=== PATIENT | male | born 1960 | race African-American/Black ===

== ENCOUNTER 2025-09-17 21:11 | Inpatient (IN) | payer MEDICARE, MEDICAID ==
[~2025-09-17] VITALS: Ht 188 cm; Wt 105.2 kg
[2025-09-17 21:13] VITALS: O2SAT 100
[2025-09-17 22:12] LABS: BASOPHILS % 0.2 % (0.0-2.0); EOSINOPHILS % 1.6 % (0.0-5.0); HEMATOCRIT. 36.7 % (42.0-52.0); HEMOGLOBIN. 12.8 g/dL (14.0-18.0); LYMPHOCYTES % 14.2 % (20.0-50.0); MEAN PLATELET VOLUME 6.9 fl (7.4-10.4); MONOCYTES % 9.7 % (2.0-8.0); NEUTROPHILS % 74.3 % (40.0-76.0); PLATELET 120 x1000/uL (130-400); RED BLOOD CELL COUNT 3.80 mill/uL (4.7-6.1); RED CELL DISTRIBUTION WIDTH 12.3 % (11.6-14.6)
[2025-09-17 22:25] LABS: INR 1.0
[2025-09-17 22:32] LABS: CREATININE 0.9 mg/dL (0.6-1.3); UREA NITROGEN BLOOD 9 mg/dL (9-23)
[2025-09-17 22:34] LABS: ASPARTATE AMINOTRANSFERASE 15 IU/L (<34); BILIRUBIN DIRECT 0.4 mg/dL (<=3.0); BILIRUBIN TOTAL 1.3 mg/dL (0.1-1.0); PROTEIN TOTAL 6.9 g/dL (6.0-8.3)
[2025-09-17 22:45] LABS: TROPONIN I HIGH SENSITIVITY 351 ng/L (3.0-53)
[2025-09-18] MEDS ORDERED: DOCUSATE SODIUM 100MG CAPSULE PO PRN (00:15)
[2025-09-18] MEDS: ASPIRIN 81MG TABLET NG SCH (00:15)
[2025-09-18] MEDS ORDERED: ACETAMINOPHEN 325MG TABLET PO PRN ×2 (00:15)
[2025-09-18] MEDS ORDERED: GUAIFENESIN 200MG/10ML SUGAR FREE UDC PO PRN (00:15)
[2025-09-18] MEDS ORDERED: MAGNESIUM/ALUMINUM HYDROXIDE/SIMETHICONE 30ML UDC PO PRN (00:15)
[2025-09-18] MEDS ORDERED: IPRATROPIUM/ALBUTEROL 0.5-3(2.5)MG/3ML NEB HHN PRN (00:15)
[2025-09-18] MEDS ORDERED: ONDANSETRON HCL 4MG/2ML INJ IV PRN (00:15)
[2025-09-18] MEDS: LABETALOL 5MG/ML 4ML INJ IV ONE (00:23)
[2025-09-18] MEDS: LABETALOL 5MG/ML 4ML INJ IV NR (00:23)
[2025-09-18] MEDS: HYDRALAZINE 20MG/ML VIAL IV PRN (01:09)
[2025-09-18] MEDS: IOHEXOL-350 100 ML BOTTLE ONE (01:14)
[2025-09-18] MEDS: ASPIRIN 300MG SUPP PR ONE (01:23)
[2025-09-18 06:55] LABS: CREATINE KINASE MB FRACTION 1.7 ng/mL (0.5-3.6)
[2025-09-18 06:56] LABS: CLARITY URINE CLEAR (CLEAR); COLOR URINE YELLOW (YELLOW); SPECIFIC GRAVITY URINE 1.042 (1.005-1.030)
[2025-09-18 06:57] LABS: GLUCOSE URINE TRACE (NEGATIVE); KETONES URINE NEGATIVE (NEGATIVE); LEUKOCYTE ESTERASE URINE NEGATIVE (NEGATIVE); NITRITE URINE NEGATIVE (NEGATIVE); OCCULT BLOOD URINE NEGATIVE (NEGATIVE); PH URINE 6.5 (4.5-8.0); PROTEIN URINE 1+ (NEGATIVE); UROBILINOGEN URINE 1.0 E.U./dL (0.2-1.0); WBC URINE 0-2 /hpf (0-2)
[2025-09-18 06:58] LABS: BACTERIA URINE TRACE; RBC URINE 0-2 /hpf (0-2); SQUAMOUS EPITHELIAL CELL URINE FEW /lpf (RARE/1+)
[2025-09-18 07:13] LABS: VITAMIN B12 SERUM 332 pg/mL (211-911)
[2025-09-18 07:14] LABS: FOLIC ACID (FOLATE) SERUM 18.70 ng/mL (>5.38)
[2025-09-18 08:00] VITALS: BP 178/86; PULSE 86; RESP 18; TEMP 36.4; O2SAT 99
[2025-09-18 08:09] LABS: TROPONIN I HIGH SENSITIVITY 277 ng/L (3.0-53)
[2025-09-18 08:20] LABS: TROPONIN I HIGH SENSITIVITY 299 ng/L (3.0-53)
[2025-09-18] MEDS: CARVEDILOL 6.25 MG TABLET PO SCH (09:00)
[2025-09-18] MEDS: DEXT 5%/LACTATED RINGERS 500 ML IV ONE (10:46)
[2025-09-18] MEDS: PANTOPRAZOLE SODIUM 40 MG/VIAL IV SCH ×2 (10:58→21:54)
[2025-09-18 11:45] VITALS: BP 178/86; PULSE 84; RESP 18; TEMP 37.6412
[2025-09-18 12:00] VITALS: BP 178/89; PULSE 80; RESP 18; TEMP 36.4; O2SAT 99
[2025-09-18 12:07] LABS: BG BASE EXCESS 2.0 mmol/L (-2.0-3.0); BG CARBOXYHEMOGLOBIN 1.4 % (0.5-1.5); BG DEOXYHEMOGLOBIN 4.0 % (0.0-5.0); BG FRACTION INSPIRED OXYGEN 21; BG HCO3 ACT 25.5 mmol/L (21.0-28.0); BG METHEMOGLOBIN 0.0 % (0.5-1.5); BG OXYGEN SATURATION 95.9 % (94.0-98.0); BG OXYHEMOGLOBIN 94.6 % (94.0-98.0); BG PCO2 36.2 mmHg (35.0-48.0); BG PH 7.465 (7.350-7.450); BG PO2 78.4 mmHg (83.0-108.0); BG SAMPLE SITE RIGHT BRACHIAL; BG TOTAL HEMOGLOBIN 13.9 g/dL (13.5-17.5); BG VENT MODE ROOM AIR
[2025-09-18] MEDS: MAGNESIUM 4 G PREMIX 100 ML IV ONE (14:40)
[2025-09-18] MEDS: CLOPIDOGREL 75MG TABLET NG SCH (14:44)
[2025-09-18] MEDS: ENOXAPARIN 40MG/0.4ML SYR SUBCUT SCH (14:45)
[2025-09-18 15:06] LABS: *AMPHETAMINES SCREEN URINE NEGATIVE (NEGATIVE); *BARBITURATES SCREEN URINE NEGATIVE (NEGATIVE); *BENZODIAZEPINES SCREEN URINE NEGATIVE (NEGATIVE); *COCAINE SCREEN URINE NEGATIVE (NEGATIVE); CANNABINOID URINE SCREEN PRESUMPTIVE POSITIVE (NEGATIVE); ECSTASY MDMA SCREEN URINE NEGATIVE (NEGATIVE); METHADONE URINE SCREEN NEGATIVE (NEGATIVE); OPIATES URINE SCREEN NEGATIVE (NEGATIVE); PHENCYCLIDINE URINE SCREEN NEGATIVE (NEGATIVE)
[2025-09-18 15:52] VITALS: BP 177/89; PULSE 70; RESP 20; TEMP 36.2; O2SAT 97
[2025-09-18] MEDS: CLONIDINE 0.1MG TABLET PO PRN (16:19)
[2025-09-18] MEDS: ASPIRIN 81MG TABLET PO SCH (17:02)
[2025-09-18] MEDS: NITROGLYCERIN OINT 1GM/INCH UDPKT TD SCH (17:02)
[2025-09-18] MEDS: DEXT 5%/LACTATED RINGERS 1,000 ML IV SCH (17:12)
[2025-09-18 17:25] VITALS: BP 182/96
[2025-09-18 19:10] LABS: CREATINE KINASE MB FRACTION 1.7 ng/mL (0.5-3.6)
[2025-09-18 19:12] LABS: TROPONIN I HIGH SENSITIVITY 243 ng/L (3.0-53)
[2025-09-18 20:00] VITALS: BP 153/83; PULSE 82; RESP 18; TEMP 36.6; O2SAT 96
[2025-09-18] MEDS ORDERED: ATORVASTATIN CALCIUM 40MG TABLET NG SCH ×2 (21:00)
[2025-09-18] MEDS: ATORVASTATIN CALCIUM 40MG TABLET PO SCH (21:53)
[2025-09-18] MEDS: CARVEDILOL 12.5MG TABLET PO SCH (21:53)
[2025-09-19] VITALS: BP 144/79; PULSE 74; RESP 19; TEMP 36.7; O2SAT 96
[2025-09-19 04:00] VITALS: BP 158/89; PULSE 78; RESP 20; TEMP 36.4; O2SAT 97
[2025-09-19 06:39] LABS: HEMATOCRIT. 36.6 % (42.0-52.0); HEMOGLOBIN. 12.5 g/dL (14.0-18.0); MEAN PLATELET VOLUME 7.1 fl (7.4-10.4); PLATELET 125 x1000/uL (130-400); RED BLOOD CELL COUNT 3.75 mill/uL (4.7-6.1); RED CELL DISTRIBUTION WIDTH 12.6 % (11.6-14.6)
[2025-09-19 06:56] LABS: TRIGLYCERIDE 90 mg/dL (0-150); UREA NITROGEN BLOOD 7 mg/dL (9-23)
[2025-09-19 06:57] LABS: LDL CHOLESTEROL 70 mg/dL (5-100)
[2025-09-19 07:00] LABS: T4 FREE 1.22 ng/dL (0.89-1.76)
[2025-09-19 07:44] LABS: CREATININE 0.4 mg/dL (0.6-1.3)
[2025-09-19 08:00] VITALS: BP 124/61; PULSE 82; RESP 19; TEMP 37.1; O2SAT 98
[2025-09-19] MEDS: CLOPIDOGREL 75MG TABLET PO SCH (09:55)
[2025-09-19] MEDS: ASPIRIN 81MG EC TABLET PO SCH (09:56)
[2025-09-19 12:00] VITALS: BP 178/97; PULSE 71; RESP 18; TEMP 36.2; O2SAT 96
[2025-09-19 16:00] VITALS: BP 187/99; PULSE 92; RESP 18; TEMP 36.6; O2SAT 96
[2025-09-19 17:04] LABS: LYMPHOCYTES % MANUAL 13.0 % (20.0-50.0); MONOCYTES % MANUAL 16.0 % (2.0-8.0); NEUTROPHILS % MANUAL 71.0 % (45.0-75.0); PLATELET ESTIMATE DECREASED
[2025-09-19] MEDS ORDERED: DEXTROSE 50% WATER 50ML SYRINGE IV PRN (18:45)
[2025-09-19] MEDS: POTASSIUM CHLORIDE 20MEQ/PACKET PO NR (18:53)
[2025-09-19 20:00] VITALS: BP 189/97; PULSE 84; RESP 19; TEMP 36.8; O2SAT 95
[2025-09-19] MEDS: BLOOD SUGAR DIAGNOSTIC STRIP TEST SCH (21:28)
[2025-09-19] MEDS: NITROGLYCERIN OINT 1GM/INCH UDPKT TD SCH (21:30)
[2025-09-19] MEDS: CARVEDILOL 6.25 MG TABLET PO SCH (21:30)
[2025-09-19] MEDS: INSULIN LISPRO 100 UNITS/ML SUBCUT SCH (21:31)
[2025-09-20] VITALS: BP 212/101; PULSE 81; RESP 19; TEMP 36; O2SAT 100
[2025-09-20 04:00] VITALS: BP 178/91; PULSE 68; RESP 19; TEMP 35.8; O2SAT 97
[2025-09-20 08:00] VITALS: BP 174/84; PULSE 72; RESP 17; TEMP 36.3; O2SAT 96
[2025-09-20 08:25] LABS: BASOPHILS % 0.2 % (0.0-2.0); EOSINOPHILS % 0.7 % (0.0-5.0); HEMATOCRIT. 40.0 % (42.0-52.0); HEMOGLOBIN. 13.5 g/dL (14.0-18.0); LYMPHOCYTES % 15.6 % (20.0-50.0); MEAN PLATELET VOLUME 7.0 fl (7.4-10.4); MONOCYTES % 13.5 % (2.0-8.0); NEUTROPHILS % 70.0 % (40.0-76.0); PLATELET 152 x1000/uL (130-400); RED BLOOD CELL COUNT 4.11 mill/uL (4.7-6.1); RED CELL DISTRIBUTION WIDTH 12.7 % (11.6-14.6)
[2025-09-20 08:49] LABS: CREATININE 0.8 mg/dL (0.6-1.3)
[2025-09-20 08:50] LABS: UREA NITROGEN BLOOD 9 mg/dL (9-23)
[2025-09-20 08:52] LABS: PHOSPHORUS 2.7 mg/dL (2.5-4.9)
[2025-09-20] MEDS: NITROGLYCERIN OINT 1GM/INCH UDPKT TD SCH (10:59)
[2025-09-20 11:12] LABS: TROPONIN I HIGH SENSITIVITY 137 ng/L (3.0-53)
[2025-09-20 12:00] VITALS: PULSE 76; RESP 16; TEMP 36.6; O2SAT 95
[2025-09-20 16:00] VITALS: BP 164/90; PULSE 96; RESP 19; TEMP 36.9; O2SAT 97
[2025-09-20] MEDS: MAGNESIUM 2 G PREMIX 50 ML IV NR (18:44)
[2025-09-20 20:00] VITALS: BP 175/87; PULSE 94; RESP 18; TEMP 36.1; O2SAT 97
[2025-09-20] MEDS: POTASSIUM CHLORIDE 20MEQ/PACKET PO SCH (22:56)
[2025-09-21] VITALS (8 sets, daily range): BP systolic 119–197; BP diastolic 71–108; PULSE 64–101; RESP 18–19; TEMP 35.9–36.8; O2SAT 96–98
[2025-09-21 08:52] LABS: CREATININE 0.9 mg/dL (0.6-1.3); UREA NITROGEN BLOOD 13 mg/dL (9-23)
[2025-09-21 08:54] LABS: PHOSPHORUS 3.0 mg/dL (2.5-4.9)
[2025-09-21] MEDS: CARVEDILOL 3.125 MG TABLET PO SCH ×2 (09:26→21:20)
[2025-09-21] MEDS: NITROGLYCERIN OINT 1GM/INCH UDPKT TD SCH (09:27)
[2025-09-21] MEDS: HYDRALAZINE HCL 25MG TABLET PO SCH (23:30)
[2025-09-22] VITALS: BP 167/89; PULSE 83; RESP 18; TEMP 36.2; O2SAT 99
[2025-09-22 04:00] VITALS: BP 151/71; PULSE 70; RESP 18; TEMP 35.8; O2SAT 98
[2025-09-22 08:00] VITALS: BP 156/84; PULSE 78; RESP 15; TEMP 35.9; O2SAT 98
[2025-09-22 09:36] LABS: PLATELET 136 x1000/uL (130-400); RED BLOOD CELL COUNT 3.99 mill/uL (4.7-6.1); RED CELL DISTRIBUTION WIDTH 12.5 % (11.6-14.6)
[2025-09-22 09:51] LABS: CREATININE 0.9 mg/dL (0.6-1.3); UREA NITROGEN BLOOD 14 mg/dL (9-23)
[2025-09-22 09:52] LABS: TROPONIN I HIGH SENSITIVITY 77 ng/L (3.0-53)
[2025-09-22 09:53] LABS: PHOSPHORUS 3.4 mg/dL (2.5-4.9)
[2025-09-22 12:00] VITALS: BP 104/105; PULSE 77; RESP 18; TEMP 36.6; O2SAT 95
[2025-09-22] MEDS ORDERED: LACTULOSE 20G/30ML UDC PO PRN (12:15)
[2025-09-22] MEDS: LACTULOSE 20G/30ML UDC PO PRN (14:26)
[2025-09-22 16:00] VITALS: BP 134/78; PULSE 94; RESP 19; TEMP 36.3; O2SAT 95
[2025-09-22] MEDS: AMLODIPINE 10MG TABLET PO SCH (18:18)
[2025-09-22 19:04] VITALS: BP 183/89; PULSE 78; RESP 18; TEMP 36.4; O2SAT 98
[2025-09-23] VITALS (7 sets, daily range): BP systolic 131–168; BP diastolic 50–91; PULSE 71–94; RESP 15–19; TEMP 36.3–36.6; O2SAT 95–99
[2025-09-23 06:54] LABS: CREATININE 1.0 mg/dL (0.6-1.3)
[2025-09-23 06:55] LABS: UREA NITROGEN BLOOD 15 mg/dL (9-23)
[2025-09-23 06:57] LABS: PHOSPHORUS 3.8 mg/dL (2.5-4.9)
[2025-09-23 07:23] LABS: BASOPHILS % 0.3 % (0.0-2.0); EOSINOPHILS % 2.6 % (0.0-5.0); HEMATOCRIT. 35.1 % (42.0-52.0); HEMOGLOBIN. 12.0 g/dL (14.0-18.0); LYMPHOCYTES % 19.1 % (20.0-50.0); MEAN PLATELET VOLUME 7.5 fl (7.4-10.4); MONOCYTES % 14.6 % (2.0-8.0); NEUTROPHILS % 63.4 % (40.0-76.0); PLATELET 129 x1000/uL (130-400); RED BLOOD CELL COUNT 3.66 mill/uL (4.7-6.1); RED CELL DISTRIBUTION WIDTH 12.4 % (11.6-14.6)
[2025-09-23] MEDS: LOSARTAN 50 MG TABLET PO SCH (10:22)
[2025-09-23] MEDS ORDERED: CLONIDINE 0.1MG TABLET PO SCH (14:00)
[2025-09-23] MEDS: NITROGLYCERIN OINT 1GM/INCH UDPKT TD SCH (14:46)
[2025-09-23] MEDS: CARVEDILOL 12.5MG TABLET PO SCH (20:39)
[2025-09-24] VITALS: BP 142/78; PULSE 69; RESP 19; TEMP 36.3; O2SAT 99
[2025-09-24 04:00] VITALS: BP 180/79; PULSE 79; RESP 19; TEMP 36.1; O2SAT 98
[2025-09-24 08:00] VITALS: BP 159/94; PULSE 74; RESP 16; TEMP 36.3; O2SAT 97
[2025-09-24 12:00] VITALS: BP 132/73; PULSE 52; RESP 16; TEMP 36.4; O2SAT 97
[2025-09-24 16:00] VITALS: BP 138/84; PULSE 64; RESP 16; TEMP 36.3; O2SAT 97
[2025-09-24 20:00] VITALS: BP 153/101; PULSE 90; RESP 20; TEMP 36.4; O2SAT 98
[2025-09-25] VITALS: BP 164/82; PULSE 81; RESP 20; TEMP 36.4; O2SAT 97
[2025-09-25 04:00] VITALS: BP 156/81; PULSE 85; RESP 20; TEMP 36.4; O2SAT 97
[2025-09-25 08:00] VITALS: BP 152/84; PULSE 72; RESP 17; TEMP 36.3; O2SAT 98
[2025-09-25 12:00] VITALS: BP 148/72; PULSE 68; RESP 16; TEMP 36.4; O2SAT 97
[2025-09-25 16:00] VITALS: BP 151/61; PULSE 71; RESP 17; TEMP 36.4; O2SAT 98
[2025-09-25 20:00] VITALS: BP 132/87; PULSE 83; RESP 18; TEMP 36.8; O2SAT 98
[2025-09-26] VITALS: BP 155/93; PULSE 72; RESP 19; TEMP 36.7; O2SAT 100
[2025-09-26 04:00] VITALS: BP 137/73; PULSE 67; RESP 18; TEMP 36.6; O2SAT 99
[2025-09-26 08:00] VITALS: BP 138/68; PULSE 65; RESP 16; TEMP 36.1; O2SAT 96
[2025-09-26] MEDS: ISOSORBIDE MONONITRATE 30MG TABLET SR 24HR PO SCH (08:14)
[2025-09-26 12:02] VITALS: BP 112/59; PULSE 72; RESP 16; TEMP 36.1; O2SAT 96
[2025-09-26] MEDS ORDERED: CLOP-31 PO (14:49)
[2025-09-26] MEDS ORDERED: COR12 PO (14:49)
[2025-09-26] MEDS ORDERED: LIP40 PO (14:49)
[2025-09-26] MEDS ORDERED: AMLO10TA80 PO (14:49)
[2025-09-26] MEDS ORDERED: LOSA50TA41 PO (14:49)
[2025-09-26] MEDS ORDERED: ISOS30TA91 PO (14:49)
[2025-09-26] MEDS ORDERED: ASPI-1406 PO (14:49)
[2025-09-26 15:04] VITALS: BP 142/77; PULSE 86; RESP 18; TEMP 96.9
== END 2025-09-26 16:30 | DRG 64 ==
LOC: ER 21:11 → 6WST 23:05 → EDBEDREQ 23:08 → EDBEDREQTM 23:08 → ENRESERV 09-18 04:52
PROVIDERS: ADMIT Internal Medicine; ATTEND Internal Medicine
DX: I63.521 Cerebral infarction due to unspecified occlusion or stenosis of right anterior cerebral artery (principal); G93.41 Metabolic encephalopathy; I21.A1 Myocardial infarction type 2; D69.6 Thrombocytopenia, unspecified; D53.1 Other megaloblastic anemias, not elsewhere classified; R13.10 Dysphagia, unspecified; I16.0 Hypertensive urgency; Z79.02 Long term (current) use of antithrombotics/antiplatelets; I69.354 Hemiplegia and hemiparesis following cerebral infarction affecting left non-dominant side; E11.65 Type 2 diabetes mellitus with hyperglycemia; I63.549 Cerebral infarction due to unspecified occlusion or stenosis of unspecified cerebellar artery; G93.89 Other specified disorders of brain; I10 Essential (primary) hypertension; R29.708 NIHSS score 8; F80.9 Developmental disorder of speech and language, unspecified; Z79.82 Long term (current) use of aspirin; Z79.899 Other long term (current) drug therapy; E78.5 Hyperlipidemia, unspecified
CPT/HCPCS: 36415; 36600; 70496; 70498; 70551; 71045; 80048; 80061; 80076; 80305; 80320; 81003; 82375; 82550; 82553; 82607; 82746; 82805; 82962; 83036; 83735; 84100; 84439; 84443; 84484; 85025; 85027; 92523; 92610; 93005; 93306; 93970; 97112; 97163; 97166; 97535; 99291; J0360; J1650; J1815; J2470; J3475; J3490; J7121; Q9967; G0480